=== PATIENT | female | born 2000 | race Caucasian/White ===

== ENCOUNTER 2019-07-28 08:35 | Outpatient (CLI) | payer MEDICAID, SELFPAY ==
--- NOTE | 2019-07-28 08:42 | US_ITS ---
WS: [id number] EARLY OBSTETRICAL ULTRASOUND (<14 WEEKS). HISTORY: PELVIC PAIN/SUPERVISION OF NORMAL 1ST TRIMESTER COMPARISON: None available. Single intrauterine gestational sac is identified. Cardiac activity at 153 BPM. [place]-rump length claudia sures 1.8 cm which corresponds to a gestation of 8w2d. Normal-appearing yolk sac and amnion demonstra margarette. No subchorionic hemorrhage. No free fluid. Normal size ovaries with no mass. Small corpus luteum cyst RIGHT ovary with a maximum diameter 1.5 cm . US/US OB <= 14 weeks fetus [id number] IMPRESSION: 1. Single intrauterine gestation of 8 weeks 2 days with an EDC of 03/06/2020. 2. No complications.
== END 2019-07-28 08:36 | disposition home or self-care (01) ==
PROVIDERS: PCP Nurse Practitioner Family; Visit Provider Family Medicine
DX: Z34.91 Encounter for supervision of normal pregnancy, unspecified, first trimester (principal); R10.2 Pelvic and perineal pain; Z3A.08 8 weeks gestation of pregnancy
CPT/HCPCS: 76801

== ENCOUNTER 2020-08-10 08:54 | Outpatient (CLI) | payer MEDICAID, SELFPAY ==
[2020-08-10 11:21] LABS: Basophils % 0.5 %; Hematocrit 38.8 % (37.0-47.0); Hemoglobin 12.1 g/dL (11.5-15.3); Lymphocytes # 0.9 10^3/uL (0.8-4.8); Mean Corpuscular HGB Conc 31.2 g/dL (30.0-36.0); Mean Corpuscular Hemoglobin 25.3 pg (28.0-34.0); Mean Platelet Volume 10.4 fL (7.4-10.4); Monocytes # 0.6 10^3/uL (0.2-0.9); Monocytes % 9.9 %; Neutrophils # 4.27 10^3/uL (1.8-7.7); Neutrophils % 74.4 %; Nucleated Red Blood Cells % 0 %; Platelet Count 263 10^3/cmm (130-400); Red Blood Count 4.79 10^6/uL (4.1-5.3); Red Cell Distribution Width 15.2 % (12.1-15.1); White Blood Count 5.7 10^3/uL (4.0-10.0)
[2020-08-10 11:51] LABS: D Dimer 2.97 ug/mIFEU (0-0.59)
[2020-08-10 12:12] LABS: Erythrocyte Sedimentation Rate 18 mm/hr (0-15)
[2020-08-10 12:24] LABS: Alanine Aminotransferase 24 U/L (0-33); Albumin Level 4.5 g/dL (3.5-5.2); Alkaline Phosphatase 125 IU/L (35-105); Aspartate Amino Transferase 20 U/L (0-32); Blood Urea Nitrogen 12 mg/dL (6-20); C Reactive Protein 5.7 mg/L (0.0-4.9); Carbon Dioxide 23 mmol/L (22-29); Chloride 101 mmol/L (98-107); Ferritin 14 ng/mL (15-150); Globulin 3.3 g/dL (1.3-4.6); Glomerular Filtration Rate 126.2 mL/min (90-130); Glucose 94 mg/dL (65-115); Iron 69 ug/dL (37-145); Osmolality Calculated 280 mOsm/kg (285-295); Percent Saturation 16.6 % (20-50); Sodium 135 mmol/L (136-145); Thyroid Stimulating Hormone 0.76 uIU/mL (0.27-4.20); Total Bilirubin 0.3 mg/dL (0.15-1.2); Total Iron Binding Capacity 414 mcg/dl; Total Protein 7.8 g/dL (6.6-8.7); Unsaturated Iron Binding 345 ug/dL (112-347)
--- NOTE | 2020-08-10 17:55 | ONC CON_ITS ---
Dr. Rob New Patient Note Patient: David Meza Unit #: [id number]: 2000 Dicatated By: Camilo Rob M.D.Date of Visit: Aug 10, 2020 Onc MED New Patient/Consult Referring Physician: Teresa Carolina N.P. Chief Complaint: Antiphospholipid antibody syndrome. History of Present Illness: This is a 19-year-old woman with known antiphospholipid antibody syndrome. She has been in good general health. I do not have complete records available. In August 2018 she experienced a miscarriage with her 1st . With her 2nd the following year, she was found to have antiphospholipid syndrome, and she was maintained on anticoagulation with Lovenox during the . She was induced at 34 weeks and she had a successful delivery. It was recommended that she not attempt further pregnancies. She has had no thromboembolism or other manifestations of the phospholipid syndrome. She says she has been feeling fine, though her energy is back and forth. She has normal activity. Her ECOG score is 0. She has good appetite. She has been gaining weight. She does not have fever, night sweats, or hot flashes. She does complain that every 2 or 3 days she has relatively brief episodes of sharp pain in her chest, and with those episodes she says she cannot breathe. They last for about 5 minutes. She also reports having quite a bit of heartburn, though she does manage that adequately with famotidine. She has had no problems with bowel or bladder function. She does report having irregular periods, they tend to be heavy. She has no significant joint or bone pain. But she does tend to have frequent leg cramps. She has really bad headaches, which is chronic. She also reports having some dizziness. She has no focal neurologic symptoms. Past Medical History: Her medical history includes antiphospholipid antibody syndrome, anxiety, chronic migraine, and depression. Past Surgical History: Her surgical/procedural history includes arthroscopic right knee surgery x 2, D&C, ear tube placement, and tonsillectomy. Medications: She is currently not any prescription medication. Allergies: Povidone-Iodine Social History: Ms. Meza is . She is a dmiy-vr-ohai mom. She does not smoke smoke. She has just occasional alcohol use. Family History: Mother in a motor vehicle accident at age 31. Her father, brother, and a sister are all in good health. Review Of Symptoms: Constitutional - She says her energy is back and forth, but she has normal activity. Appetite is good. She has gained weight. She does not have fever, night sweats, or hot flashes. ECOG score is 0, Eyes - Her vision is getting worse, ENMT - No hearing loss or tinnitus. Her sinuses are clogged a lot. No mouth sores. No sore throat or difficulty swallowing, Hematologic/Lymphatic - She has easy bruising. No other bleeding, Respiratory - About every 2 or 3 days she has been having brief episodes of sharp pain in the chest and difficulty breathing. She does not complain of cough and she has not had hemoptysis, Cardiovascular - No angina pain. No palpitations, Gastrointestinal - No nausea or vomiting. She has quite a bit of heartburn. No diarrhea or constipation. No blood in the stool or black stools, Genitourinary (F) - No dysuria or hematuria. No urinary frequency. No urgency or incontinence. Her periods are irregular and they tend to be heavy, Musculoskeletal - No joint or bone pain. She does report having leg cramps, Integumentary - No skin rash or other skin changes, Neurologic - She has frequent headaches and she sometimes has dizziness. No numbness or tingling. No other focal neurologic symptoms, Psychiatric - She has anxiety and she also has a history of depression. No insomnia. Vital Signs: Performed on Aug 10, 2020 10:22: 0, 0, 35.08 (HIGH), 1.88 sq.m, 62 in, 97 %, 91 /min, 18 /min, 114/76 mm(hg), 99.2 F (HIGH), and 191.8 lbs (HIGH). Physical Examination: Constitutional - She appears to be in good general health, Eyes - Sclerae nonicteric. Conjunctivae clear, ENMT - No lesions noted in the oral cavity, Neck - No mass or thyromegaly, Hematologic/Lymphatic - No cervical, clavicular, or axillary adenopathy, Respiratory - Lungs are clear with good air movement bilaterally, Cardiovascular - Heart rhythm is regular. There is no murmur, gallop, or rub noted, Abdomen - Soft and non-tender. Liver and spleen are not enlarged. There is no abdominal mass or ascites noted and there is no inguinal adenopathy, Back/Spine - No spine or CVA tenderness noted, Extremities - No edema. Both calves feels soft. Pedal pulses are palpable bilaterally, Integumentary - No rashes. No suspicious skin lesions noted, Neurologic - No focal neurologic deficits noted. Problem List: 1. Antiphospholipid antibody syndrome. 2. Chronic migraine. 3. Anxiety/depression. Problems Addressed with this Encounter and Plan: 1. Patient with antiphospholipid antibody syndrome, discovered when she had a miscarriage with her 1st . She had a successful on anticoagulation with Lovenox. We discussed the fact that in the absence of any other clinical manifestations of the antiphospholipid antibody syndrome, there is no indication for anticoagulation or other treatment. She is aware that she needs to avoid other risk factors for thromboembolism, most significantly smoking or any form of hormonal therapy. She also is aware that she will need anticoagulation if she desires any further pregnancies. While she has no history of any prior thromboembolism, she recently has been having episodes of chest pain and difficulty breathing, which does raise some concern for possible thromboembolism. As such, I will check additional laboratory studies today to include CBC, comprehensive metabolic profile, sed rate and CRP level, JEFF screen, anti-cardiolipin antibody profile, anti-beta-2 glycoprotein antibodies, lupus anticoagulant screen, JEFF screen, and a D-dimer. If the D-dimer is elevated, she will be scheduled for a CT pulmonary angiogram. 2. She reports having heavy menstrual periods and she has been having frequent muscle cramps. As such, I suspect that she is iron deficient, and I also will check serum iron studies and ferritin. She will be given replacement therapy as indicated. Signed By: Camilo Rob M.D. <<Signature on File>>
[2020-08-13 16:17] LABS: Anti-Nuclear AB Pattern #3 Nuclear, Speckled; Anti-Nuclear Antibody Pattern Nuclear, Homogeneous; Anti-Nuclear Antibody Screen POSITIVE (NEGATIVE)
[2020-08-14 22:18] LABS: Inhibitor Screen Reflex Negative (Negative); LA-Interp Not Indicated; PTT-LA 45 sec (<=40); Prothrombin Time 50 sec (<=45); Thrombin Time Reflex Negative (Negative)
[2020-08-15 00:33] LABS: CARDIOLIPIN AB (IGA) <2.0 APL-U/mL; CARDIOLIPIN AB (IGG) <2.0 GPL-U/mL; CARDIOLIPIN AB (IGM) 3.3 MPL-U/mL
== END 2020-08-10 08:55 | disposition home or self-care (01) ==
LOC: ONCMED 08:58
PROVIDERS: PCP Nurse Practitioner Family; Visit Provider Internal Medicine Medical Oncology
DX: D68.61 Antiphospholipid syndrome (principal); G43.919 Migraine, unspecified, intractable, without status migrainosus; F41.9 Anxiety disorder, unspecified; F32.9 Major depressive disorder, single episode, unspecified; Z79.899 Other long term (current) drug therapy
CPT/HCPCS: 36415; 80053; 82728; 83540; 83550; 84443; 85025; 85378; 85613; 85651; 85730; 86038; 86140; 86146; 86147; 99205

== ENCOUNTER 2020-09-10 10:08 | Outpatient (CLI) | payer MEDICAID, SELFPAY ==
--- NOTE | 2020-09-10 10:29 | CT_ITS ---
WS: [id number] CTA scan of the chest with IV contrast. Additional two-dimensional coronal and sagittal reconstructio n and MIP images was performed. 09/10/2020 Clinical Data: ELEVATED D-DIMER, SHORTNESS OF BREATH, SUB-STERNAL CHEST LOUIS Comparison: None. DLP: 711.[address] scans at [facility] use at least one of these dose optimization techniques: automat ed exposure control; mA and/or kV adjustment per patient size (includes targeted exams where dose is matched to clinical indication); or iterative reconstruction. Findings: The central pulmonary arteries and peripheral pulmonary arteries fill normally with no evidence of in traluminal filling defects. No pulmonary embolic disease is noted. No nodules, masses or effusions are seen. The heart size is normal with no pericardial effusion. The pulmonary arterial system and thoracic aorta demonstrate no abnormalities or dilatations. No pneumoni a or pneumothorax is seen. There is no axillary or significant mediastinal adenopathy. The thyroid gl and shows normal enhancement. The trachea bifurcates into the bronchi. The upper abdomen shows no abnormalities. The visualized liver, spleen, pancreas, gallbladder, adrena l glands and superior poles of the kidneys are not remarkable. The bones of the thoracic and upper lumbar spine are not remarkable. CT/CT angio chest PE protcl [id number] Impression: 1. Negative for pulmonary embolic disease. 2. Negative for acute cardiopulmonary disease.
[2020-09-10] MEDS: iohexol 350 mg/mL 100 mL Btl IV (10:47)
== END 2020-09-10 10:09 | disposition home or self-care (01) ==
LOC: RADWPI 10:14
PROVIDERS: PCP Nurse Practitioner Family; Visit Provider Internal Medicine Medical Oncology
DX: R79.89 Other specified abnormal findings of blood chemistry (principal); R06.02 Shortness of breath; R07.89 Other chest pain
CPT/HCPCS: 71275; Q9967

== ENCOUNTER 2020-10-18 10:14 | Outpatient (CLI) | payer MEDICAID, SELFPAY ==
[2020-10-18 11:17] LABS: Basophils # 0.1 10^3/uL (0.0-0.1); Basophils % 0.8 %; Eosinophils # 0.1 10^3/uL (0.0-0.8); Hematocrit 41.6 % (37.0-47.0); Hemoglobin 12.6 g/dL (11.5-15.3); Lymphocytes # 2.9 10^3/uL (0.8-4.8); Lymphocytes % 36.7 %; Mean Corpuscular HGB Conc 30.3 g/dL (30.0-36.0); Mean Corpuscular Hemoglobin 26.1 pg (28.0-34.0); Mean Corpuscular Volume 86.1 fl (81-99); Mean Platelet Volume 10.9 fL (7.4-10.4); Monocytes # 0.5 10^3/uL (0.2-0.9); Monocytes % 6.6 %; Neutrophils # 4.24 10^3/uL (1.8-7.7); Neutrophils % 54.6 %; Nucleated Red Blood Cells % 0 %; Platelet Count 271 10^3/cmm (130-400); Red Blood Count 4.83 10^6/uL (4.1-5.3); Red Cell Distribution Width 14.4 % (12.1-15.1); White Blood Count 7.8 10^3/uL (4.0-10.0)
[2020-10-18 11:48] LABS: Alanine Aminotransferase 32 U/L (0-33); Albumin Level 4.4 g/dL (3.5-5.2); Alkaline Phosphatase 117 IU/L (35-105); Anion Gap 12.2 (5-19); Aspartate Amino Transferase 27 U/L (0-32); Blood Urea Nitrogen 12 mg/dL (6-20); Calcium 9.4 mg/dL (8.5-10.5); Carbon Dioxide 25 mmol/L (22-29); Chloride 101 mmol/L (98-107); Globulin 3.5 g/dL (1.3-4.6); Glomerular Filtration Rate 154.3 mL/min (90-130); Glucose 84 mg/dL (65-115); Lactate Dehydrogenase 187 U/L (135-214); Osmolality Calculated 277 mOsm/kg (285-295); Potassium 4.2 mmol/L (3.5-5.1); Sodium 134 mmol/L (136-145); Total Bilirubin 0.3 mg/dL (0.15-1.2); Total Protein 7.9 g/dL (6.6-8.7)
[2020-10-18 12:14] LABS: CRP High Sensitivity Cardiac < 0.150 mg/dL (0.0-0.3); Ferritin 13 ng/mL (15-150); Iron 70 ug/dL (37-145); Percent Saturation 18.5 % (20-50); Total Iron Binding Capacity 378 mcg/dl; Unsaturated Iron Binding 308 ug/dL (112-347)
[2020-10-18 12:51] LABS: Folate Level 7.9 ng/mL (4.8-37.3)
== END 2020-10-18 10:15 | disposition home or self-care (01) ==
PROVIDERS: PCP Nurse Practitioner Family; Visit Provider Internal Medicine Medical Oncology
DX: D68.61 Antiphospholipid syndrome (principal); Z79.899 Other long term (current) drug therapy
CPT/HCPCS: 36415; 80053; 82728; 82746; 83540; 83550; 83615; 85025; 86141; 86147; 86160; 86162; 86235; 86255; 86376

== ENCOUNTER 2020-10-21 06:00 | Outpatient (CLI) | payer MEDICAID, SELFPAY ==
[2020-10-22 12:22] LABS: COMPLEMENT COMPONENT C3C 161 mg/dL (83-193); COMPLEMENT COMPONENT C4C 31 mg/dL (15-57)
[2020-10-22 13:26] LABS: COMPLEMENT, TOTAL (CH50) 59 U/mL (31-60)
[2020-10-22 14:33] LABS: CENTROMERE B ANTIBODY <1.0 NEG AI (<1.0 NEG); JO-1 ANTIBODY <1.0 NEG AI (<1.0 NEG); RNP ANTIBODY <1.0 NEG AI (<1.0 NEG); SCL-70 ANTIBODY <1.0 NEG AI (<1.0 NEG); SJOGREN'S ANTIBODY (SS-A) <1.0 NEG AI (<1.0 NEG); SM ANTIBODY <1.0 NEG AI (<1.0 NEG); SS-B <1.0 NEG AI (<1.0 NEG)
[2020-10-25 00:52] LABS: Anti-Cardiolipin IgA AB <2.0 APL-U/mL (<20.0)
[2020-10-26 10:32] LABS: THYROID PEROXIDASE ANTIBODIES 1 IU/mL (<9)
[2020-10-26 17:41] LABS: ANA PATTERN Nuclear, Speckled; ANA SCREEN, IFA POSITIVE (NEGATIVE); Anti-Nuclear AB Pattern #2 Nuclear, Homogeneous
[2020-10-27 11:21] LABS: DNA AB (DS) CRITHIDIA,IFA NEGATIVE (NEGATIVE)
== END 2020-10-21 06:01 | disposition home or self-care (01) ==
LOC: LAB 11-01 05:27
PROVIDERS: PCP Nurse Practitioner Family; Visit Provider Internal Medicine Medical Oncology
DX: D68.61 Antiphospholipid syndrome (principal)
CPT/HCPCS: 86147; 86160; 86162; 86235; 86255; 86376

== ENCOUNTER 2020-11-05 10:34 | Outpatient (CLI) | payer MEDICAID, SELFPAY ==
[2020-11-05 13:18] LABS: Erythrocyte Sedimentation Rate 12 mm/hr (0-15)
[2020-11-08 14:07] LABS: Anti-Cardiolipin IgA AB <2.0 APL-U/mL (<20.0)
[2020-11-08 14:22] LABS: Beta 2 Glycoprotein IGA <2.0 U/mL (<20.0); Beta 2 Glycoprotein IGG <2.0 U/mL (<20.0); Beta 2 Glycoprotein IGM 5.7 U/mL (<20.0)
== END 2020-11-05 10:35 | disposition home or self-care (01) ==
LOC: ONCMED 10:37
PROVIDERS: PCP Nurse Practitioner Family; Visit Provider Internal Medicine Medical Oncology
DX: R76.0 Raised antibody titer (principal); G43.919 Migraine, unspecified, intractable, without status migrainosus; F41.9 Anxiety disorder, unspecified; F32.9 Major depressive disorder, single episode, unspecified; Z79.899 Other long term (current) drug therapy
CPT/HCPCS: 36415; 85613; 85651; 85730; 86146; 86147

== ENCOUNTER 2020-11-11 06:43 | Outpatient (CLI) | payer MEDICAID, SELFPAY ==
--- NOTE | 2020-11-11 09:42 | ONC FU_ITS ---
Dr. Rob Patient Follow-Up Note Patient: David Meza Unit #: [id number]: 2000 Dicatated By: Camilo Rob M.D.Date of Visit:Nov 11, 2020 Onc Med Follow-up/Prog Note Chief Complaint: Antiphospholipid antibody syndrome. History of Present Illness: This is a 20 year-old woman with antiphospholipid antibody syndrome. In August 2018 she experienced a miscarriage with her 1st . With her 2nd the following year, she was found to have antiphospholipid syndrome, and she was maintained on anticoagulation with Lovenox during the . She was induced at 34 weeks and she had a successful delivery. It was recommended that she not attempt further pregnancies. She had no thromboembolism or other manifestations of antiphospholipid syndrome. I had seen her initially on 08/10/2020. At that point she was reported having episodes of chest pain and shortness of breath. Her laboratory studies included a D-dimer, which was slightly elevated. As a precaution, I did check a CT pulmonary angiogram, which showed no evidence of pulmonary embolism. Her other laboratory studies at that time included CBC showing low normal hemoglobin at 12.1 g with borderline low red cell indices. The white blood cell count was 5700 and the platelet count was 263,000. Sed rate was slightly elevated at 18 mm/h. Comprehensive metabolic profile was unremarkable. Her serum iron studies did show low transferrin saturation at 16% with ferritin 14 ng/mL, consistent with iron deficiency. Her JEFF screen was positive at a 1: 160 titer. Anticardiolipin antibody profile was negative. A lupus anticoagulant screen was reported to be not indicated , though her baseline pro time and PTT were both elevated. A factor inhibitor screen was reported to be negative, though. She was recommended to begin oral iron supplementation. Her repeat CBC on 10/18/2020 showed slight increase in the hemoglobin to 12.6 g with Red cell indices in the normal range. Her transferrin saturation and ferritin was still low. JEFF screen was again positive, this time at 1: 320. The JEFF profile was unrevealing, and the beta-2 glycoprotein I antibody screen was negative. She is seen for a follow-up visit. She has been feeling good generally. She reports having normal energy and activity. ECOG score 0. Her appetite is good. She has no fever, night sweats, or hot flashes. She says her periods are still irregular. She does not complain of shortness of breath, cough, or chest pain. She has had some heartburn and she was having constipation with her iron supplement. She had stopped taking it because she could not afford to pay for it. She reports having infrequent urination. She has no significant joint or bone pain. She reports having headache on a daily basis and she also has some lightheadedness. She has no numbness/paresthesia or other focal neurologic symptoms. She has had no abnormal bruising or other bleeding manifestations. Medications: Ferrous Sulfate 1 Tablet (of 325 (65 fe) mg) Oral daily Allergies: Povidone-Iodine Vital Signs: Performed on Nov 11, 2020 09:13 Height - 62.00 in Weight - 191.8 lbs BSA - 1.88 sq.m BMI - 35.08 (HIGH) Temperature - 97.7 F (LOW) Pulse - 87 /min Respiration - 18 /min BP - 128/85 mm(hg) O2 Sat - 98 % Pain - 0 Fatigue - 0 Physical Examination: Constitutional - She looks good generally, Eyes - Sclerae nonicteric. Conjunctivae clear, ENMT - No lesions noted in the oral cavity, Hematologic/Lymphatic - No cervical, clavicular, or axillary adenopathy, Respiratory - Lungs are clear with good air movement bilaterally, Cardiovascular - Heart rhythm is regular. There is no murmur, gallop, or rub noted, Abdomen - Soft. Liver and spleen are not enlarged. There is no abdominal mass or ascites noted and there is no inguinal adenopathy, Extremities - No edema, Neurologic - No focal neurologic deficits noted. Problem List: 1. Antiphospholipid antibody syndrome. 2. Chronic migraine. 3. Anxiety/depression. Problems Addressed with this Encounter and Plan: 1. Patient with antiphospholipid antibody syndrome, discovered when she had a miscarriage with her 1st . She had a successful on anticoagulation with Lovenox. On her evaluation, she was found to have a positive JEFF screen at a significant titer, but her JEFF profile was unrevealing, and she has had no symptoms of systemic lupus erythematosus. Her screening studies for antiphospholipid antibodies were negative. A lupus anticoagulant screen was requested, but reported by the lab to be not indicated . Her baseline pro time and PTT were elevated, and I do not have an explanation for that finding. She was reported to have a negative inhibitor screen. At this point there is no indication for any treatment and there is no indication for further evaluation other than at some point I do want to repeat her coagulation studies and lupus inhibitor screen. She will require anticoagulation with any further pregnancies should the need arise. She will continue regular follow-up with Teresa Carolina. I will plan to see her again only as needed. 2. She has iron deficiency, which he is just borderline anemic. She will continue oral iron supplementation. She is recommended to have a repeat CBC and serum iron studies in 3 months. Signed By: Camilo Rob M.D. <<Signature on File>>
== END 2020-11-11 06:44 | disposition home or self-care (01) ==
LOC: ONCMED 06:43
PROVIDERS: PCP Nurse Practitioner Family; Visit Provider Internal Medicine Medical Oncology
DX: D68.61 Antiphospholipid syndrome (principal); D50.9 Iron deficiency anemia, unspecified; G43.809 Other migraine, not intractable, without status migrainosus; F41.8 Other specified anxiety disorders; Z79.899 Other long term (current) drug therapy
CPT/HCPCS: G0463

== ENCOUNTER → 2021-05-24 11:33 | Outpatient (BNVA) | payer MEDICAID, SELFPAY | PROVIDERS: PCP Registered Nurse; Visit Provider Registered Nurse | DX: N39.0 Urinary tract infection, site not specified (principal) | CPT/HCPCS: 81000; 87077; 87086; 87184 ==

== ENCOUNTER → 2021-06-16 08:23 | Outpatient (BNVA) | payer MEDICAID, SELFPAY | PROVIDERS: PCP Registered Nurse; Visit Provider Internal Medicine | DX: R76.8 Other specified abnormal immunological findings in serum (principal); M25.50 Pain in unspecified joint; R53.83 Other fatigue; Z11.59 Encounter for screening for other viral diseases; N39.0 Urinary tract infection, site not specified; Z87.891 Personal history of nicotine dependence | CPT/HCPCS: 73120; 81001; 82306; 82550; 82607; 82728; 83540; 84443; 86704; 86803; 87340; 99204 ==

== ENCOUNTER → 2021-06-30 14:10 | Outpatient (BNVA) | payer MEDICAID, SELFPAY | PROVIDERS: PCP Registered Nurse; Visit Provider Internal Medicine | DX: R76.8 Other specified abnormal immunological findings in serum (principal); M25.50 Pain in unspecified joint; E61.1 Iron deficiency; R53.83 Other fatigue; Z79.899 Other long term (current) drug therapy; Z86.19 Personal history of other infectious and parasitic diseases | CPT/HCPCS: 36415; 82784; 83516; 85613; 85730; 99214 ==

== ENCOUNTER → 2022-01-11 09:14 | Outpatient (BNVA) | payer MEDICAID, SELFPAY | PROVIDERS: PCP Registered Nurse; Visit Provider Internal Medicine | DX: M32.9 Systemic lupus erythematosus, unspecified (principal); Z79.899 Other long term (current) drug therapy | CPT/HCPCS: 80053; 81000; 85025; 85651; 86140; 86160 ==

== ENCOUNTER 2022-04-07 18:01 | Emergency (ER) | payer MEDICAID, SELFPAY ==
[2022-04-07 18:06] VITALS: BMI 31.1
[2022-04-07 18:10] VITALS: BP 108/71; PULSE 99; RESP 16; TEMP 36.3; O2SAT 98
--- NOTE | 2022-04-07 18:28 | W.ED.NAVMDI ---
HPI - Nausea/Vomiting/Diarrhea General: Chief complaint: Nausea/Vomiting/Diarrhea Stated complaint: brain surgery sunday, n/v all day Time Seen by Provider: 04/07/22 18:28 History of Present Illness: 21-year-old lady with complex past medical history including 1 week postop from right acoustic neuroma resection presenting to the emergency department for generalized illness including dizziness and nausea vomiting. She reports 1 prior ED visit 2 days ago for similar and had been improved until this morning. She is set up and had onset of severe dizziness associated with recurrent episodes of nausea and vomiting and inability tolerate p.o. intake including medications. She does note double vision over the past few days which is new however overall neurologic symptoms are similar to just postop. Intensity symptoms is severe. Course has persisted. No other specific changes in health, exacerbating, or alleviating factors identified. Onset (ago): day(s) Description of vomiting: watery Associated nausea: Yes Associated abdominal pain: No Location of pain: Other Pain consistency: constant Severity: severe Exacerbating factors: eating Relieving factors: none Associated symtoms: Reports headache(s), malaise and nausea Review of Systems General: Reports: 10 or more systems reviewed and unremarkable except in HPI and below Const: Reports: malaise GI: Reports: nausea Neuro: Reports: headache(s) PFSH ED PFSH: Medical History Hx of antiphospholipid syndrome Lupus No pertinent past medical history neghx: htn, dm, thyroid, dvt/pe PCP: Ottoniel Glynn Pseudotumor cerebri dx by Dr. Artis in 2019 Surgical History History of D&C 2019 History of placement of ear tubes Hx of knee surgery R ACLS REPAIR L PETELLA REPAIR Hx of tonsillectomy Family History Mother Lupus Family/Other No problems noted. Father Cancer prostate Hypertension Denies family history of Rheumatoid arthritis Colon cancer Ovarian cancer Diabetes CAD (coronary artery disease) Heart disease Hyperlipidemia Breast cancer Uterine cancer Thyroid disease Stroke Social History Smoking and tobacco status: never smoked Physical Exam Const: COMMON NORMALS: alert GENERAL APPEARANCE: cooperative, well developed and ill appearing HENMT: COMMON NORMALS: normocephalic HEAD & SCALP: normocephalic THROAT: posterior oropharynx normal OTHER: Right sided surgical incision appears well-healing, mild tenderness to palpation and induration without evidence of drainage or cellulitis. No external ear drainage. Eye: COMMON NORMALS: conjunctivae normal CONJUNCTIVA: Yes conjunctivae normal SCLERA: sclerae normal Neck/C-Spine: COMMON NORMALS: supple GENERAL: Yes trachea midline Resp: COMMON NORMALS: clear to auscultation bilaterally EFFORT & INSPECTION: Yes able to speak in complete sentences AUSCULTATION: clear to auscultation bilaterally Cardio: COMMON NORMALS: regular rate and regular rhythm RATE: regular rate RHYTHM: regular rhythm GI: COMMON NORMALS: Soft to palpation PALPATION: Yes Soft to palpation and No Tenderness to palpation present (GI) Extremity: GENERAL: Yes normal exam except as noted and No edema Neuro: COMMON NORMALS: moves all extremities SENSORIUM/ORIENTATION: Yes alert and No Orientation impaired OTHER: Extraocular movements are intact with appropriate conjugate gaze however at times the right eye has disconjugate gaze with superior movement. Psych: COMMON NORMALS: mental status grossly normal and Normal thought process present THOUGHT PROCESS: Normal thought process present Course Vital Signs: Vital signs: Vital Signs Temperature 98.3 F 04/07/22 18:33 Pulse Rate 76 04/07/22 22:57 Respiratory Rate 14 04/07/22 22:57 Blood Pressure 114/77 04/07/22 22:57 Pulse Oximetry 98 04/07/22 22:57 Oxygen Delivery Me thod 04/07/22 19:40 MDM - Nausea/Vomiting/Diarrhea Medical Decision Making 21-year-old lady with complex history presenting due to nausea vomiting as well as headache. Exam as above. Patient is somewhat ill. Though mostly feels nauseous. She is nontoxic and is no meningismus or new focal neurologic changes. Labs with hemoconcentration and leukocytosis. Mild transaminitis noted of uncertain etiology. There is squamous epithelial contamination on urinalysis. CT demonstrates changes from prior surgery which are difficult to assess in the context of this surgery. I discussed the case with the on-call neurosurgeon at the patient's operating facility who reviewed images and believes that they are within postoperative expected range. Patient proved with analgesia, fluids, antiemetic, medication for vertiginous type symptoms. Additionally I will give artificial tears as she has been unable to get this for difficulty closing the right eye which has persisted since surgery. Patient able to tolerate p.o. intake. Most likely etiology of symptoms is postoperative in nature. The results of ED evaluation were discussed with the patient including prescriptions and/or symptomatic cares (if applicable) including appropriate and responsible use, followup plan, and return precautions. The patient verbalized understanding and felt safe for discharge. Medical Records I reviewed the patient's medical records. Lab Data I reviewed the patient's lab results. 04/07/22 18:41 04/07/22 18:[address] 04/07/22 19:13 IMPRESSION: 1. Changes consistent with a right temporoparietal craniotomy. Heterogenous, mildly hypodense fluid collection in the right middle cranial fossa in the surgical bed. Large amount of pneumocephalus in the fluid collection. There is also enhancement along the medial surface of the fluid collection. Findings may be postoperative in nature, a subdural empyema cannot be ruled out however. Recommend clinical correlation. Further evaluation with MRI of the brain without and with contrast is also recommended, if the patient has no contraindications. 2. Focal right temporal hyperdense fluid collection suspicious for an acute subdural hematoma measuring measures up to 3.4 mm in maximum thickness. 3. 2nd right frontotemporal isodense/mildly hypodense subdural fluid collection measuring up to 5.4 mm in maximum thickness. Findings are suspicious for a subacute subdural hematoma, possibly due to recent surgery. There is mild mass effect on the underlying brain parenchyma with 5.5 mm of right to left midline shift. No hydrocephalus. 4. Small amount of fluid in the right and left mastoid air cells. 5. Mild swelling of the right frontotemporal soft tissues and tiny focus of soft tissue emphysema. 6. Incidental/nonacute findings are listed in the report. COMMENTS: THIS REPORT CONTAINS FINDINGS THAT MAY BE CRITICAL TO PATIENT CARE. The findings were verbally communicated via telephone conference with Adi Steward at 9:31 PM MEDTRONICS TECHNICIAN on 04/07/2022. The findings were acknowledged and understood. Laboratory Results WBC 16.4 10^3/uL (4.0-10.0) H 04/07/22 18:41 RBC 5.49 10^6/uL (4.1-5.3) H 04/07/22 18:41 Hgb 15.9 g/dL (11.5-15.3) H 04/07/22 18:41 Hct 47.8 % (37.0-47.0) H 04/07/22 18:41 MCV 87.1 fl (81-99) 04/07/22 18:41 MCH 29.0 pg (28.0-34.0) 04/07/22 18:41 MCHC 33.3 g/dL (30.0-36.0) 04/07/22 18:41 RDW 12.6 % (12.1-15.1) 04/07/22 18:41 Plt Count 311 10^3/cmm (130-400) 04/07/22 18:41 MPV 10.3 fL (7.4-10.4) 04/07/22 18:41 Neut % (Auto) 90.9 % 04/07/22 18:41 Lymph % (Auto) 5.8 % 04/07/22 18:41 [place] % (Auto) 2.7 % 04/07/22 18:41 Eos % (Auto) 0.1 % 04/07/22 18:41 Baso % (Auto) 0.1 % 04/07/22 18:41 Neut # (Auto) 14.94 10^3/uL (1.8-7.7) H 04/07/22 18:41 Lymph # (Auto) 1.0 10^3/uL (0.8-4.8) 04/07/22 18:41 [place] # (Auto) 0.4 10^3/uL (0.2-0.9) 04/07/22 18:41 Eos # (Auto) 0.0 10^3/uL (0.0-0.8) 04/07/22 18:41 Baso # (Auto) 0.0 10^3/uL (0.0-0.1) 04/07/22 18:41 Nucleated RBC % (auto) 0 % 04/07/22 18:41 Nucleated RBCs # 0.0 /100WBC 04/07/22 18:41 Sodium 135 mmol/L (136-145) L 04/07/22 18:41 Potassium 4.1 mmol/L (3.5-5.1) 04/07/22 18:41 Chloride 96 mmol/L (98-107) L 04/07/22 18:41 Carbon Dioxide 27 mmol/L (22-29) 04/07/22 18:41 Anion Gap 16.1 (5-19) 04/07/22 18:41 BUN 19 mg/dL (6-20) 04/07/22 18:41 Creatinine 0.6 mg/dL (0.5-0.9) 04/07/22 18:41 GFR Calculation 123.9 mL/min (90-130) 04/07/22 18:41 Glucose 120 mg/dL (65-115) H 04/07/22 18:41 Calculated Osmolality 283 mOsm/kg (285-295) L 04/07/22 18:41 Calcium 10.3 mg/dL (8.5-10.5) 04/07/22 18:41 Total Bilirubin 0.4 mg/dL (0.15-1.2) 04/07/22 18:41 AST 26 U/L (0-32) 04/07/22 18:41 ALT 66 U/L (0-33) H 04/07/22 18:41 Alkaline Phosphatase 150 U/L (35-105) H 04/07/22 18:41 Total Protein 8.4 g/dL (6.6-8.7) 04/07/22 18:41 Albumin 5.0 g/dL (3.5-5.2) 04/07/22 18:41 Globulin 3.4 g/dL (1.3-4.6) 04/07/22 18:41 Lipase 21 U/L (13-60) 04/07/22 18:41 HCG, Qual Negative (Negative) 04/07/22 18:41 Urine Color Yellow (Yellow) 04/07/22 19:14 Urine Appearance Cloudy (CLEAR) A 04/07/22 19:14 Urine pH 5 (5-7) 04/07/22 19:14 Ur Specific [place] 1.020 (1.005-1.030) 04/07/22 19:14 Urine Protein Trace (Negative) 04/07/22 19:14 Urine Glucose (UA) Norm (Normal) 04/07/22 19:14 Urine Ketones 1+ (Negative) H 04/07/22 19:14 Urine Blood 3+ (Negative) H 04/07/22 19:14 Urine Nitrate Negative (Negative) 04/07/22 19:14 Urine Bilirubin Neg (Negative) 04/07/22 19:14 Urine Urobilinogen 1 mg/dL (Negative) H 04/07/22 19:14 Ur Leukocyte Esterase Trace (Negative) H 04/07/22 19:14 Urine RBC 10-15 /hpf (0-2) H 04/07/22 19:14 Urine WBC 5-10 /hpf (0-5) H 04/07/22 19:14 Ur Squamous Epith Cells 55-80 /hpf (0-5) H 04/07/22 19:14 Amorphous Sediment Not Reportable 04/07/22 19:14 Urine Bacteria 3+ /hpf (NONE) H 04/07/22 19:14 Urine Mucus 2+ /hpf 04/07/22 19:14 Discharge Plan Discharge Patient Disposition: Home Clinical Impression: Dehydration, Nausea & vomiting, Dizziness, Post-operative pain, Subdural hematoma Condition: Stable Prescriptions: New ondansetron 4 mg tablet,disintegrating 4 mg PO Q8H PRN (Reason: nausea and vomiting) Qty: 30 0RF No Action azithromycin 250 mg tablet See Rx Instructions PO .COMPLEX 5 Days Qty: 6 0RF Rx Instructions: For 250 mg dose pack: take 500 mg today (day 1), then 250 mg for 4 days (days 2-5) PO prednisone 10 mg tablet 30 mg PO DAILY 5 Days Qty: 15 0RF promethazine 25 mg suppository 25 mg FL Q6H PRN (Reason: nausea and vomiting) Qty: 12 0RF Discharge Orders: Discharge ED (Routine); Ordered 04/07/22 Ordered By: Adi Lane Referrals: Ana Donnelly, [facility] [Primary Care Provider] - Discharge Diet: Usual diet Discharge Activity: Limit activity as instructed Patient Instructions: Acute Nausea and Vomiting (ED), Dizziness (ED) Activity Restrictions/Additional Instructions: Thank you for visiting the emergency department. You were seen and evaluated for pain, nausea, vomiting associated with recent neurologic surgery. You were found to have be dehydrated. We are pleased that you had improvement in symptoms with ED treatment. A colleague of your neurosurgeon reviewed your images and felt that they were within the postoperative normal expected parameters. Please call your neurosurgeon. Return immediately to an emergency department for any new neurologic symptoms, fevers, other infectious symptoms, uncontrolled symptoms, or anything else that you are concerned about and feel needs emergency department evaluation. Coding Level of Care Code ED Plug Cutting Machine Operator for Mil Feliz
[2022-04-07 18:33] VITALS: BP 109/81; PULSE 77; RESP 16; TEMP 36.8; O2SAT 96
[2022-04-07] MEDS: sodium chloride 0.9% 1,000 ML 999 ML IV (18:45)
[2022-04-07] MEDS: morphine 4 mg/mL SDV 1 mL IVP (18:48)
[2022-04-07] MEDS: ondansetron 2 mg/ML SDV 2 mL 4 MG IVP (18:48)
[2022-04-07 18:58] LABS: Basophils % 0.1 %; Eosinophils % 0.1 %; Hematocrit 47.8 % (37.0-47.0); Hemoglobin 15.9 g/dL (11.5-15.3); Lymphocytes % 5.8 %; Mean Corpuscular HGB Conc 33.3 g/dL (30.0-36.0); Mean Corpuscular Volume 87.1 fl (81-99); Mean Platelet Volume 10.3 fL (7.4-10.4); Monocytes # 0.4 10^3/uL (0.2-0.9); Monocytes % 2.7 %; Neutrophils # 14.94 10^3/uL (1.8-7.7); Neutrophils % 90.9 %; Nucleated Red Blood Cells % 0 %; Platelet Count 311 10^3/cmm (130-400); Red Blood Count 5.49 10^6/uL (4.1-5.3); Red Cell Distribution Width 12.6 % (12.1-15.1); White Blood Count 16.4 10^3/uL (4.0-10.0)
--- NOTE | 2022-04-07 19:13 | CTR_ITS ---
PROCEDURE INFORMATION: Exam: CT Head Without And With Contrast Exam date and time: 04/07/2022 8:20 PM Age: 21 years old Clinical indication: Pain; Headache not specified; Prior surgery; Surgery date: 3-7 days post-operative; Surgery type: RT acoustic neuroma resection; Additional info: 1 wk post op headache, n/v, R acoustic neuroma resection TECHNIQUE: Imaging protocol: Computed tomography of the head without and with contrast. Radiation optimization: All CT scans at this facility use at least one of these dose optimization techniques: automated exposure control; mA and/or kV adjustment per patient size (includes targeted exams where dose is matched to clinical indication); or iterative reconstruction. Contrast material: OMNI 350; Contrast volume: 80 ml; Contrast route: INTRAVENOUS (IV); Other protocol: This patient has received 0 known CTs and 0 known cardiac nuclear medicine studies in the 12 months prior to the current study. COMPARISON: No relevant prior studies available. RADIATION DOSE METRICS: Total DLP (mGy-cm): 1189.08 FINDINGS: Brain: Small amount of pneumocephalus in the right middle cranial fossa, likely postsurgical in nature. Heterogenous, mildly hypodense fluid collection in the right middle cranial fossa in the surgical bed measuring 5.2 x 3.7 x 1.9 cm (series 7, image 36 and series 3, image 15). Large amount of pneumocephalus in the fluid collection. There is also enhancement along the medial surface of the fluid collection. Findings may be postoperative in nature, a subdural empyema cannot be ruled out however. Focal right temporal hyperdense fluid collection suspicious for an acute subdural hematoma. This measures up to 3.4 mm in maximum thickness (series 7, image 35). 2nd right frontotemporal isodense/mildly hypodense subdural fluid collection measuring up to 5.4 mm in maximum thickness (series 7, image 22). Findings are suspicious for a subacute subdural hematoma, possibly due to recent surgery. There is mild mass effect on the underlying brain parenchyma. 5.5 mm of right to left midline shift. No acute infarct. No intra-axial or extra-axial masses. Cook-white matter differentiation is unremarkable. No evidence for Chiari 1 malformation. Cerebral ventricles: No hydrocephalus. Paranasal sinuses: Visualized paranasal sinuses are clear. Mastoid air cells: Small amount of fluid in the right and left mastoid air cells. Orbital cavities: Globes and lenses, extraocular muscles, and optic nerves are intact bilaterally. No acute intraorbital abnormality. Small calcifications at the right and left optic discs, suggesting optic drusen. Bones/joints: Changes consistent with a right temporoparietal craniotomy. 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 Soft tissues: Mild swelling of the right frontotemporal soft tissues and tiny focus of soft tissue emphysema. Skin zoila over the right frontotemporal scalp. CT/CT head wo/w con [id number] IMPRESSION: 1. Changes consistent with a right temporoparietal craniotomy. Heterogenous, mildly hypodense fluid collection in the right middle cranial fossa in the surgical bed. Large amount of pneumocephalus in the fluid collection. There is also enhancement along the medial surface of the fluid collection. Findings may be postoperative in nature, a subdural empyema cannot be ruled out however. Recommend clinical correlation. Further evaluation with MRI of the brain without and with contrast is also recommended, if the patient has no contraindications. 2. Focal right temporal hyperdense fluid collection suspicious for an acute subdural hematoma measuring measures up to 3.4 mm in maximum thickness. 3. 2nd right frontotemporal isodense/mildly hypodense subdural fluid collection measuring up to 5.4 mm in maximum thickness. Findings are suspicious for a subacute subdural hematoma, possibly due to recent surgery. There is mild mass effect on the underlying brain parenchyma with 5.5 mm of right to left midline shift. No hydrocephalus. 4. Small amount of fluid in the right and left mastoid air cells. 5. Mild swelling of the right frontotemporal soft tissues and tiny focus of soft tissue emphysema. 6. Incidental/nonacute findings are listed in the report. COMMENTS: THIS REPORT CONTAINS FINDINGS THAT MAY BE CRITICAL TO PATIENT CARE. The findings were verbally communicated via telephone conference with Adi Steward at 9:31 PM HVAC INSTALLATION TECHNICIAN on 04/07/2022. The findings were acknowledged and understood.
[2022-04-07 19:15] LABS: HCG, Serum Qual Negative (Negative)
[2022-04-07 19:16] LABS: Alanine Aminotransferase 66 U/L (0-33); Alkaline Phosphatase 150 U/L (35-105); Anion Gap 16.1 (5-19); Aspartate Amino Transferase 26 U/L (0-32); Blood Urea Nitrogen 19 mg/dL (6-20); Calcium 10.3 mg/dL (8.5-10.5); Carbon Dioxide 27 mmol/L (22-29); Chloride 96 mmol/L (98-107); Globulin 3.4 g/dL (1.3-4.6); Glomerular Filtration Rate 123.9 mL/min (90-130); Glucose 120 mg/dL (65-115); Lipase 21 U/L (13-60); Osmolality Calculated 283 mOsm/kg (285-295); Potassium 4.1 mmol/L (3.5-5.1); Sodium 135 mmol/L (136-145); Total Bilirubin 0.4 mg/dL (0.15-1.2); Total Protein 8.4 g/dL (6.6-8.7)
[2022-04-07 19:40] VITALS: BP 109/74; PULSE 55; RESP 16; O2SAT 95
[2022-04-07 19:44] LABS: Add Urine Microscopic? YES; Bilirubin Urine Neg (Negative); Blood Urine 3+ (Negative); Glucose Urine UA Norm (Normal); Ketones Urine 1+ (Negative); Leukocyte Esterase Urine Trace (Negative); Nitrate Urine Negative (Negative); Protein Urine Trace (Negative); Urine Appearance Cloudy (CLEAR); Urine Color Yellow (Yellow); Urobilinogen Urine 1 mg/dL (Negative); pH Urine 5 (5-7)
[2022-04-07 19:47] LABS: Add Urine Culture? No; Bacteria Urine 3+ /hpf; Mucus Urine 2+ /hpf; Squamous Epithelial Cell Urine 55-80 /hpf (0-5)
[2022-04-07] MEDS: iohexol 350 mg/mL 500 mL Btl (per mL) IV (20:03)
[2022-04-07 20:45] VITALS: BP 105/79; PULSE 64; O2SAT 97
[2022-04-07] MEDS: meclizine 25 mg tablet PO (21:19)
[2022-04-07] MEDS: artificial tears Op Oint 3.5 gm 1 APPLIC EYE-RIGHT (21:20)
[2022-04-07] MEDS: ondansetron 4 MG Tablet 8 MG PO (22:46)
[2022-04-07 22:57] VITALS: BP 114/77; PULSE 76; RESP 14; O2SAT 98
== END 2022-04-07 23:04 | disposition home or self-care (01) ==
PROVIDERS: Emergency Medicine; Emergency Provider Emergency Medicine; PCP Registered Nurse
DX: R42 Dizziness and giddiness (principal); R11.2 Nausea with vomiting, unspecified; E86.0 Dehydration; G89.18 Other acute postprocedural pain; I62.00 Nontraumatic subdural hemorrhage, unspecified
CPT/HCPCS: 36415; 70470; 80053; 81001; 83690; 84703; 85025; 87040; 96361; 96374; 96375; 96376; 99285; J2270; J2405; J7030; J8597; Q0162; Q9967

== ENCOUNTER 2022-04-08 19:10 | Emergency (ER) | payer MEDICAID, SELFPAY ==
[2022-04-08 19:21] VITALS: BP 110/77; PULSE 103; RESP 16; TEMP 36.6; O2SAT 96
[2022-04-08 19:24] VITALS: BP 121/81; PULSE 71; RESP 19; O2SAT 96
--- NOTE | 2022-04-08 19:58 | ED_ITS ---
HPI - Nausea/Vomiting/Diarrhea General: Chief complaint: Nausea/Vomiting/Diarrhea Stated complaint: n/v, dizziness Time Seen by Provider: 04/08/22 19:58 History of Present Illness: Ms. Meza is a 21-year-old lady with complex past medical history including acoustic neuroma resection presenting to the emergency department as a return for intractable nausea and vomiting as well as worsening headache. She reports improvement upon discharge last night however this morning began to have symptoms again. Her operating surgeon called a prescription for Reglan however this has not helped. Intensity symptoms is severe. Course has persisted. Neurologic symptoms are largely unchanged with the exception of eyelid twitching which is new. Pertinent past history: other Onset (ago): hour(s) Description of vomiting: watery Associated nausea: Yes Exacerbating factors: eating Relieving factors: none Context: recent surgery/procedure and other Associated symtoms: Reports nausea Review of Systems General: Reports: 10 or more systems reviewed and unremarkable except in HPI and below GI: Reports: nausea PFSH ED PFSH: Medical History Hx of antiphospholipid syndrome Lupus No pertinent past medical history neghx: htn, dm, thyroid, dvt/pe PCP: Ottoniel Glynn Pseudotumor cerebri dx by Dr. Artis in 2019 Surgical History History of D&C 2019 History of placement of ear tubes Hx of knee surgery R ACLS REPAIR L PETELLA REPAIR Hx of tonsillectomy Family History Mother Lupus Family/Other No problems noted. Father Cancer prostate Hypertension Denies family history of Rheumatoid arthritis Colon cancer Ovarian cancer Diabetes CAD (coronary artery disease) Heart disease Hyperlipidemia Breast cancer Uterine cancer Thyroid disease Stroke Social History Smoking and tobacco status: never smoked Physical Exam Const: COMMON NORMALS: alert GENERAL APPEARANCE: cooperative and well developed HENMT: COMMON NORMALS: normocephalic and atraumatic HEAD & SCALP: normocephalic and atraumatic THROAT: posterior oropharynx normal OTHER: Right sided surgical incision appears well-healing, mild tenderness to palpation and induration without evidence of drainage or cellulitis. No external ear drainage. Eye: COMMON NORMALS: conjunctivae normal CONJUNCTIVA: Yes conjunctivae normal SCLERA: sclerae normal Neck/C-Spine: COMMON NORMALS: supple GENERAL: Yes trachea midline Resp: COMMON NORMALS: normal respiratory effort and clear to auscultation bilaterally EFFORT & INSPECTION: Yes able to speak in complete sentences AUSCULTATION: clear to auscultation bilaterally Cardio: COMMON NORMALS: regular rate and regular rhythm RATE: regular rate RHYTHM: regular rhythm GI: COMMON NORMALS: Soft to palpation PALPATION: Yes Soft to palpation and No Tenderness to palpation present (GI) Extremity: GENERAL: Yes normal exam except as noted and No edema Neuro: COMMON NORMALS: moves all extremities SENSORIUM/ORIENTATION: Yes alert and No Orientation impaired OTHER: Extraocular movements are intact with appropriate conjugate gaze however at times the right eye has disconjugate gaze with superior movement. Psych: COMMON NORMALS: mental status grossly normal and Normal thought process present THOUGHT PROCESS: Normal thought process present Course Vital Signs: Vital signs: Vital Signs Temperature 97.8 F 04/08/22 19:21 Pulse Rate 63 04/08/22 23:04 Respiratory Rate 16 04/08/22 23:04 Blood Pressure 108/71 04/08/22 23:04 Pulse Oximetry 98 04/08/22 23:04 Oxygen Delivery Me thod 04/08/22 19:21 MDM - Nausea/Vomiting/Diarrhea Medical Decision Making 21-year-old lady with complex history presenting due to nausea vomiting as well as headache. Exam as above. Patient is somewhat ill. Though mostly feels nauseous. She is nontoxic and is no meningismus or new focal neurologic changes. Labs with overall improvement compared to prior on hematologic panel. Metabolic panel overall similar with mild dehydration. CT demonstrates changes from prior surgery which appear similar to prior day which I had I discussed the case with the on-call neurosurgeon at the patient's operating facility who reviewed images and believes that they are within postoperative expected range. Patient proved with analgesia, fluids, antiemetic, medication for vertiginous type symptoms. Most likely etiology of symptoms is postoperative in nature. Patient had more improvement with promethazine which will be prescribed. The results of ED evaluation were discussed with the patient including prescript ions and/or symptomatic cares (if applicable) including appropriate and responsible use, followup plan, and return precautions. The patient verbalized understanding and felt safe for discharge. Medical Records I reviewed the patient's medical records. Lab Data I reviewed the patient's lab results. 04/08/22 20:17 04/08/22 20:[address] 04/08/22 20:43 IMPRESSION: There are right temporoparietal craniotomy changes with underlying admixture of density including foci of air and curvilinear hyperdensity. The hyperdensity may represent hemorrhagic products versus packing material, however it is stable when compared to the prior study with no new hemorrhage seen. There is associated sulcal effacement and a 2 mm leftward midline shift, stable when compared to the prior study. Laboratory Results WBC 9.7 10^3/uL (4.0-10.0) 04/08/22 20:17 RBC 5.06 10^6/uL (4.1-5.3) 04/08/22 20:17 Hgb 14.5 g/dL (11.5-15.3) 04/08/22 20:17 Hct 44.1 % (37.0-47.0) 04/08/22 20:17 MCV 87.2 fl (81-99) 04/08/22 20:17 MCH 28.7 pg (28.0-34.0) 04/08/22 20:17 MCHC 32.9 g/dL (30.0-36.0) 04/08/22 20:17 RDW 12.6 % (12.1-15.1) 04/08/22 20:17 Plt Count 261 10^3/cmm (130-400) 04/08/22 20:17 MPV 10.2 fL (7.4-10.4) 04/08/22 20:17 Neut % (Auto) 74.4 % 04/08/22 20:17 Lymph % (Auto) 18.5 % 04/08/22 20:17 [place] % (Auto) 6.2 % 04/08/22 20:17 Eos % (Auto) 0.4 % 04/08/22 20:17 Baso % (Auto) 0.1 % 04/08/22 20:17 Neut # (Auto) 7.25 10^3/uL (1.8-7.7) 04/08/22 20:17 Lymph # (Auto) 1.8 10^3/uL (0.8-4.8) 04/08/22 20:17 [place] # (Auto) 0.6 10^3/uL (0.2-0.9) 04/08/22 20:17 Eos # (Auto) 0.0 10^3/uL (0.0-0.8) 04/08/22 20:17 Baso # (Auto) 0.0 10^3/uL (0.0-0.1) 04/08/22 20:17 Nucleated RBC % (auto) 0 % 04/08/22 20:17 Nucleated RBCs # 0.0 /100WBC 04/08/22 20:17 Sodium 134 mmol/L (136-145) L 04/08/22 20:17 Potassium 3.6 mmol/L (3.5-5.1) 04/08/22 20:17 Chloride 97 mmol/L (98-107) L 04/08/22 20:17 Carbon Dioxide 25 mmol/L (22-29) 04/08/22 20:17 Anion Gap 15.6 (5-19) 04/08/22 20:17 BUN 15 mg/dL (6-20) 04/08/22 20:17 Creatinine 0.5 mg/dL (0.5-0.9) 04/08/22 20:17 GFR Calculation 152.9 mL/min (90-130) H 04/08/22 20:17 Glucose 95 mg/dL (65-115) 04/08/22 20:17 Calculated Osmolality 279 mOsm/kg (285-295) L 04/08/22 20:17 Calcium 9.5 mg/dL (8.5-10.5) 04/08/22 20:17 Total Bilirubin 0.4 mg/dL (0.15-1.2) 04/08/22 20:17 AST 20 U/L (0-32) 04/08/22 20:17 ALT 47 U/L (0-33) H 04/08/22 20:17 Alkaline Phosphatase 120 U/L (35-105) H 04/08/22 20:17 Total Protein 7.4 g/dL (6.6-8.7) 04/08/22 20:17 Albumin 4.5 g/dL (3.5-5.2) 04/08/22 20:17 Globulin 2.9 g/dL (1.3-4.6) 04/08/22 20:17 Lipase 26 U/L (13-60) 04/08/22 20:17 Discharge Plan Discharge Patient Disposition: Home Clinical Impression: Nausea & vomiting, Post-operative pain Condition: Stable Prescriptions: New promethazine 25 mg suppository 25 mg HI Q6H PRN (Reason: nausea and vomiting) Qty: 12 0RF No Action azithromycin 250 mg tablet See Rx Instructions PO .COMPLEX 5 Days Qty: 6 0RF Rx Instructions: For 250 mg dose pack: take 500 mg today (day 1), then 250 mg for 4 days (days 2-5) PO prednisone 10 mg tablet 30 mg PO DAILY 5 Days Qty: 15 0RF ondansetron 4 mg tablet,disintegrating 4 mg PO Q8H PRN (Reason: nausea and vomiting) Qty: 30 0RF Discharge Orders: Discharge ED (Routine); Ordered 04/08/22 Ordered By: Adi Lane Referrals: Ana Donnelly FNP [Primary Care Provider] - Discharge Diet: Advance as tolerated and Clear Liquid Discharge Activity: Limit activity as instructed Patient Instructions: Promethazine (Into the rectum), Opioid Safety Activity Restrictions/Additional Instructions: Thank you for visiting the emergency department.? You were seen and evaluated for pain, nausea, vomiting associated with recent neurologic surgery. We are pleased that you had improvement in symptoms with ED treatment. I will prescribe a rectal suppository antinausea medication. Please call your neurosurgeon. Return immediately to an emergency department for any new neurologic symptoms, fevers, other infectious symptoms, uncontrolled symptoms, or anything else that you are concerned about and feel needs emergency department evaluation. 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
[2022-04-08 20:22] LABS: Basophils % 0.1 %; Eosinophils % 0.4 %; Hematocrit 44.1 % (37.0-47.0); Hemoglobin 14.5 g/dL (11.5-15.3); Lymphocytes # 1.8 10^3/uL (0.8-4.8); Lymphocytes % 18.5 %; Mean Corpuscular HGB Conc 32.9 g/dL (30.0-36.0); Mean Corpuscular Hemoglobin 28.7 pg (28.0-34.0); Mean Corpuscular Volume 87.2 fl (81-99); Mean Platelet Volume 10.2 fL (7.4-10.4); Monocytes # 0.6 10^3/uL (0.2-0.9); Monocytes % 6.2 %; Neutrophils # 7.25 10^3/uL (1.8-7.7); Neutrophils % 74.4 %; Nucleated Red Blood Cells % 0 %; Platelet Count 261 10^3/cmm (130-400); Red Blood Count 5.06 10^6/uL (4.1-5.3); Red Cell Distribution Width 12.6 % (12.1-15.1); White Blood Count 9.7 10^3/uL (4.0-10.0)
[2022-04-08 20:24] VITALS: BP 121/81; PULSE 76; RESP 17; O2SAT 95
[2022-04-08] MEDS: sodium chloride 0.9% 1,000 ML 999 ML IV ×2 (20:25→21:42)
[2022-04-08] MEDS: ondansetron 2 mg/ML SDV 2 mL 4 MG IVP (20:25)
[2022-04-08 20:42] LABS: Alanine Aminotransferase 47 U/L (0-33); Albumin Level 4.5 g/dL (3.5-5.2); Alkaline Phosphatase 120 U/L (35-105); Aspartate Amino Transferase 20 U/L (0-32); Blood Urea Nitrogen 15 mg/dL (6-20); Calcium 9.5 mg/dL (8.5-10.5); Carbon Dioxide 25 mmol/L (22-29); Chloride 97 mmol/L (98-107); Globulin 2.9 g/dL (1.3-4.6); Glomerular Filtration Rate 152.9 mL/min (90-130); Glucose 95 mg/dL (65-115); Lipase 26 U/L (13-60); Osmolality Calculated 279 mOsm/kg (285-295); Sodium 134 mmol/L (136-145); Total Bilirubin 0.4 mg/dL (0.15-1.2); Total Protein 7.4 g/dL (6.6-8.7)
--- NOTE | 2022-04-08 20:43 | CTR_ITS ---
PROCEDURE INFORMATION: Exam: CT Head Without Contrast Exam date and time: 04/08/2022 8:56 PM Age: 21 years old Clinical indication: Pain; Headache; Other: One week post op; Prior surgery; Surgery date: <1 month; Surgery type: Right acoustic neuroma resection 8 days ago; Additional info: Assess post op changes stability, worsening h/a, n/v TECHNIQUE: Imaging protocol: Computed tomography of the head without contrast. Radiation optimization: All CT scans at this facility use at least one of these dose optimization techniques: automated exposure control; mA and/or kV adjustment per patient size (includes targeted exams where dose is matched to clinical indication); or iterative reconstruction. Other protocol: This patient has received [address] and 0 known cardiac nuclear medicine studies in the 12 months prior to the current study. COMPARISON: CT head wo/w con [id number] 04/07/2022 8:20 PM RADIATION DOSE METRICS: Total DLP (mGy-cm): 1076.88 FINDINGS: Brain: See Bones/joints finding. Cerebral ventricles: No ventriculomegaly. Paranasal sinuses: Visualized sinuses are unremarkable. No fluid levels. Mastoid air cells: Visualized mastoid air cells are well aerated. 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 Right temporoparietal craniotomy changes are similar to the prior study. Admixture of density adjacent to the right temporal lobe including foci of air and curvilinear hyperdensity is stable from the prior study. There is local sulcal effacement and a 2 mm leftward midline shift, also stable when compared to the prior study. Soft tissues: Unremarkable. CT/CT head wo con* [id number] IMPRESSION: There are right temporoparietal craniotomy changes with underlying admixture of density including foci of air and curvilinear hyperdensity. The hyperdensity may represent hemorrhagic products versus packing material, however it is stable when compared to the prior study with no new hemorrhage seen. There is associated sulcal effacement and a 2 mm leftward midline shift, stable when compared to the prior study.
[2022-04-08 20:51] VITALS: RESP 17; O2SAT 99
[2022-04-08] MEDS: morphine 4 mg/mL SDV 1 mL IVP (20:51)
[2022-04-08 21:02] LABS: Anion Gap 15.6 (5-19); Potassium 3.6 mmol/L (3.5-5.1)
[2022-04-08] MEDS: promethazine 25 mg/mL SDV 1 mL IM (21:51)
[2022-04-08 22:30] VITALS: BP 97/66; PULSE 61; RESP 18; O2SAT 100
[2022-04-08 23:04] VITALS: BP 108/71; PULSE 63; RESP 16; O2SAT 98
== END 2022-04-08 23:15 | disposition home or self-care (01) ==
PROVIDERS: Nurse Practitioner Family; Emergency Provider Emergency Medicine; PCP Registered Nurse
DX: R11.2 Nausea with vomiting, unspecified (principal); G89.18 Other acute postprocedural pain; R51.9 Headache, unspecified
CPT/HCPCS: 70450; 80053; 83690; 85025; 96361; 96372; 96374; 96375; 99285; J2270; J2405; J2550; J7030

== ENCOUNTER → 2022-11-07 15:19 | Outpatient (BNVA) | payer MEDICAID, SELFPAY | PROVIDERS: PCP Registered Nurse; Visit Provider Registered Nurse | DX: N92.6 Irregular menstruation, unspecified (principal) | CPT/HCPCS: 81025 ==

== ENCOUNTER → 2024-06-17 07:53 | Outpatient (BNVA) | payer BC, MEDICAID, SELFPAY | PROVIDERS: PCP Registered Nurse; Referring Provider Nurse Practitioner Family; Visit Provider Orthopaedic Surgery | DX: M54.50 Low back pain, unspecified (principal) | CPT/HCPCS: 72110 ==

== ENCOUNTER 2024-10-07 09:05 | Day surgery (SDC) | payer BC, MEDICAID, SELFPAY ==
[2024-10-07 09:25] VITALS: BP 109/79; PULSE 84; RESP 16; TEMP 36.5; O2SAT 95
[2024-10-07 09:41] LABS: OR HCG Qualitative Urine Negative (Negative)
--- NOTE | 2024-10-07 09:56 | ANES.PREANE2 ---
Pre-Anesthetic Assessment Height/Weight: Height 1.57 m Weight 74.843 kg Temp Pulse Resp BP Pulse Ox O2 Del Method 97.7 F 84 16 109/79 95 Room Air 10/07/24 09:25 10/07/24 09:25 10/07/24 09:25 10/07/24 09:25 10/07/24 09:25 10/07/24 09:25 Preop Diagnosis: Heartburn Operation Date: 10/07/24 10:15 Proposed Procedures p EGD EGD with Biopsy 27147 R12(Not Applicable) - Jonh Hamm MD Was Beta Gabbie taken within 24 hours: N/A Was Clonidine taken within 24 hours: N/A Last intake: Intake Last Liquid Date 10/06/24 Last Liquid Time 20:00 Last Solid Date 10/06/24 Last Solid Time 13:00 Social No alcohol and No tobacco Exam alert, oriented x 3, clear to auscultation bilaterally and regular rate & rhythm Airway Submandibular: Other (Poor mouth opening) Cervical ROM: within normal limits Mallampati: Class II Dentition: full History/ROS No significant history except as noted and No significant complaints Pulmonary None reported CV/HEM None reported Bleeding disorder None reported Hepatic None reported GI None reported Metabolic None reported Musc/skel None reported Neuropsych 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 Anesthetic Plan ASA status: 2 Anesthesia: Anesthesia Evaluation and MAC Risk of > 500 ml blood loss (7ml/kg in children): No Medications/Allergies Home Medications ?Medication ?Instructions ?Recorded ?Confirmed ?Last Taken ?Type carbamazepine 200 mg tablet 300 mg PO TID 06/17/24 10/02/24 10/06/24 History (Tegretol) ibuprofen 600 mg tablet 600 mg PO Q6H PRN Pain 06/17/24 10/02/24 10/06/24 History tizanidine 4 mg capsule 4 mg PO Q6H PRN Spasms 06/17/24 10/02/24 10/06/24 History topiramate 25 mg tablet (Topamax) 25 mg PO BID PRN nerve pain #60 07/29/24 10/02/24 10/06/24 Rx tabs sucralfate 100 mg/mL oral 10 ml PO BID 30 days #600 mL 09/29/24 10/02/24 10/06/24 Rx suspension acetaminophen 500 mg capsule 500 mg PO Q6H PRN Pain 10/02/24 10/02/24 10/06/24 History hydroxychloroquine 200 mg tablet 200 mg PO BID 10/02/24 10/02/24 10/06/24 History omeprazole 20 mg capsule,delayed 20 mg PO DAILY 10/02/24 10/02/24 10/06/24 History release Allergies Allergy/AdvReac Type Severity Reaction Status Date / Time povidone-iodine (From Allergy Mild SWELLING Verified 09/29/24 08:00 Betadine) Current Medications Generic Name Dose Route Start Last Admin Trade Name Freq PRN Reason Stop Dose Admin Sodium Chloride 1,000 mls @ 15 mls/hr 10/07/24 09:13 10/07/24 09:36 Sodium Chloride 0.9% IV 10/08/24 09:12 15 mls/hr .Q24H PRN Administration COLONOSCOPY FLUIDS PFSH Anesthesia Medical History (Updated 09/29/24 @ 08:41 by Jonh Hamm MD) No pertinent past medical history neghx: htn, dm, thyroid, dvt/pe PCP: Ottoniel Glynn Pseudotumor cerebri dx by Dr. Artis in 2019 Lupus Hx of antiphospholipid syndrome Surgical History History of D&C 2019 Hx of knee surgery R ACLS REPAIR L PETELLA REPAIR Hx of tonsillectomy History of placement of ear tubes Family History Mother Lupus Family/Other No problems noted. Father Cancer prostate Hypertension Denies family history of Rheumatoid arthritis Colon cancer Ovarian cancer Diabetes CAD (coronary artery disease) Heart disease Hyperlipidemia Breast cancer Uterine cancer Thyroid disease Stroke Social History Smoking and tobacco/nicotine status: never used tobacco/nicotine Female Reproductive History Date of last menstrual period: 09/09/24
--- NOTE | 2024-10-07 09:57 | W.PM.OPSUD ---
Surgery/Procedure H&P Update DATE OF PROCEDURE: October 07, 2024 DATE H&P PERFORMED: 09/29/24 H&P UPDATE INFORMATION: I have reviewed H&P completed within last 30 days, I have examined patient prior to procedure and No changes to prior documentation PLANNED PROCEDURE: Operation Date: 10/07/24 10:15 Proposed Procedures p EGD EGD with Biopsy [id number] R12(Not Applicable) - Jonh Hamm MD
[2024-10-07 10:17] VITALS: BP 93/77; PULSE 75; RESP 20; TEMP 36.1; O2SAT 95
[2024-10-07 10:35] VITALS: BP 107/75; PULSE 69; RESP 18; O2SAT 97
--- NOTE | 2024-10-07 11:20 | ANE.PACU2 ---
Inpatient post-anesthesia follow up: Airway intact: Yes Vital signs: Temperature 97 F Pulse Rate 69 Respiratory Rate 18 Blood Pressure 107/75 Pulse Oximetry 97 Oxygen Delivery Me thod Room Air Oxygen Flow Rate 2 Fraction of Inspir ed Oxygen Hydration adequate: Yes Nausea and vomiting: No Pain level: 1 Mental status: Baseline
--- NOTE | 2024-10-07 11:22 | PC.NURSE ---
Pt stated her headache was improving and preferred to go home to take tylenol rather than continue to wait on pharmacy to bring it.
== END 2024-10-07 11:22 | disposition home or self-care (01) ==
PROVIDERS: Anesthesiology; PCP Registered Nurse; Visit Provider Student in an Organized Health Care Education/Training Program
PROC: 0DJ08ZZ Inspection of Upper Intestinal Tract, Via Natural or Artificial Opening Endoscopic (ICD-10-PCS; principal; 2024-10-07 10:15)
DX: R12 Heartburn (principal); K21.9 Gastro-esophageal reflux disease without esophagitis
CPT/HCPCS: 43239; 81025; 88305; J2704; J7030

== ENCOUNTER → 2024-11-12 05:48 | Day surgery (SDC) | payer BC, MEDICAID, SELFPAY ==
[2024-11-12 06:09] VITALS: BP 122/80; PULSE 82; RESP 18; TEMP 36.6; O2SAT 97
[2024-11-12 06:12] VITALS: BMI 32.0
[2024-11-12 06:26] LABS: OR HCG Qualitative Urine Negative (Negative)
--- NOTE | 2024-11-12 06:38 | ANES.PREANE2 ---
Pre-Anesthetic Assessment Height/Weight: Height 1.57 m Weight 79.379 kg Temp Pulse Resp BP Pulse Ox O2 Del Method 98 F 82 18 122/80 97 Room Air 11/12/24 06:09 11/12/24 06:09 11/12/24 06:09 11/12/24 06:09 11/12/24 06:09 11/12/24 06:13 Operation Date: 11/12/24 07:00 Proposed Procedures p Laparoscopic Cholecystectomy Lap Nelly 49350 K80.20(Not Applicable) - Jonh Hamm MD Familial anesthetic complications: None Was Beta Gabbie taken within 24 hours: N/A Was Clonidine taken within 24 hours: N/A Last intake: Intake Last Liquid Date 11/11/24 Last Liquid Time 21:30 Last Solid Date 11/11/24 Last Solid Time 17:30 Social No alcohol and No tobacco Exam alert, oriented x 3, clear to auscultation bilaterally and regular rate & rhythm Airway Mallampati: Class II GI Gastroesophageal Reflux Disease [facility] Lupus antiphospholipid syndrome - one blood clot during Neuropsych Acoustic neuroma, 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 per patient its returned, but is still benign, no s/s of increased intracranial pressure- does have headaches but has been told they are not related to the neuroma Anesthetic Plan ASA status: 3 Anesthesia: General Risk of > 500 ml blood loss (7ml/kg in children): No Medications/Allergies Home Medications ?Medication ?Instructions ?Recorded ?Confirmed ?Last Taken ?Type carbamazepine 200 mg tablet 300 mg PO TID 06/17/24 11/11/24 11/11/24 History (Tegretol) ibuprofen 600 mg tablet 600 mg PO Q6H PRN Pain 06/17/24 11/11/24 11/05/24 History tizanidine 4 mg capsule 4 mg PO Q6H PRN Spasms 06/17/24 11/11/24 10/06/24 History acetaminophen 500 mg capsule 500 mg PO Q6H PRN Pain 10/02/24 11/11/24 11/07/24 History hydroxychloroquine 200 mg tablet 200 mg PO BID 10/02/24 11/11/24 11/11/24 History omeprazole 20 mg capsule,delayed 20 mg PO DAILY 10/02/24 11/11/24 11/09/24 History release sucralfate 100 mg/mL oral 10 ml PO BID 30 days #600 mL 10/23/24 11/11/24 11/09/24 Rx suspension tirzepatide 2.5 mg/0.5 mL 2.5 mg SUBCUT .once weekly 10/23/24 11/11/24 Unknown History subcutaneous pen injector (Raffaele) Allergies Allergy/AdvReac Type Severity Reaction Status Date / Time povidone-iodine (From Allergy Mild SWELLING Verified 10/23/24 13:32 Betadine) Current Medications Generic Name Dose Route Start Last Admin Trade Name Scottq PRN Reason Stop Dose Admin Sodium Chloride 1,000 mls @ 30 mls/hr 11/12/24 06:00 11/12/24 06:36 Sodium Chloride 0.9% IV 11/13/24 05:59 30 mls/hr .Q24H GREG Administration PFSH Anesthesia Medical History (Updated 10/23/24 @ 13:50 by Jonh Hamm MD) No pertinent past medical history neghx: htn, dm, thyroid, dvt/pe PCP: Ottoniel Glynn Pseudotumor cerebri dx by Dr. Artis in 2019 Lupus Hx of antiphospholipid syndrome Surgical History History of D&C 2019 Hx of knee surgery R ACLS REPAIR L PETELLA REPAIR Hx of tonsillectomy History of placement of ear tubes Family History Mother Lupus Family/Other No problems noted. Father Cancer prostate Hypertension Denies family history of Rheumatoid arthritis Colon cancer Ovarian cancer Diabetes CAD (coronary artery disease) Heart disease Hyperlipidemia Breast cancer Uterine cancer Thyroid disease Stroke Social History Smoking and tobacco/nicotine status: never used tobacco/nicotine
--- NOTE | 2024-11-12 07:05 | PM.MISC ---
Miscellaneous Note Note: Rescheduling surgery. History of antiphospholipid syndrome with a DVT when she delivered. 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
--- NOTE | 2024-11-12 07:06 | PC.NURSE ---
0700: per Dr Hamm , going to reschedule procedure pending clearance from patients carbon dioxide operator
== END ==
PROVIDERS: Anesthesiology; PCP Registered Nurse; Visit Provider Student in an Organized Health Care Education/Training Program
PROC: 0FT44ZZ Resection of Gallbladder, Percutaneous Endoscopic Approach (ICD-10-PCS; CPT 47562; principal; 2024-11-12 07:00)
DX: Z53.8 Procedure and treatment not carried out for other reasons (principal)
CPT/HCPCS: 36416; 81025; 82962; J2250; J2704; J3010; J3490; J7030